=== PATIENT | female | born 1990 | race Caucasian/White ===

== ENCOUNTER → 2016-06-13 | Outpatient (CLI) | payer BC ==
[~2016-06-13] MED LIST: CLEOCIN HCL300 MG PO; DOXYCYCLINE100 M2 PO; MEDROL DOSEPAK4 MG PO; MOTRIN800 MG PO; ROBITUSSIN AC 110 ML PO
[2016-06-13 09:24] LABS: CHOLESTEROL 175 mg/dL (<200); HDL CHOLESTEROL 35 mg/dl (40-60); LDL CHOLESTEROL 117 mg/dL (9-159); TRIGLYCERIDES 113 mg/dl (<150); VLDL CHOLESTEROL 23 mg/dL (6-40)
== END ==
LOC: LAB 08:32
PROVIDERS: Nurse Practitioner Family
DX: F32.9 Major depressive disorder, single episode, unspecified (principal); E66.9 Obesity, unspecified

== ENCOUNTER → 2016-10-17 | Outpatient (CLI) | payer BC | END | disposition home or self-care (01) | LOC: RAD 13:22 | DX: R05 Cough (principal) ==